=== PATIENT | male | born 1960 | race Caucasian/White ===

== ENCOUNTER → 2016-09-01 | Day surgery (SDC) | payer BC ==
[~2016-09-01] MED LIST: ALEVE220 M1 PO; DOCU SOFT100 M1 PO; LIPITOR40 MG PO; MYRBETRIQ25 MG PO
--- NOTE | ~2016-09-01 | OR ---
Unit #: [id number] #: [id number] Patient: ANTONIO MCMILLAN [id number] [address] [place], [place] [address] [id number] MR#: [id number] NAME: ANTONIO MCMILLAN ROOM: Date of Procedure: 09/01/2016 Admission Date: 09/01/2016 Surgeon: Antonio Gay Jr., M.D. : 1960 Attending Physician: Antonio Gay Jr., M.D. Primary Care Physician: Nicholas Lazo D.O. OPERATIVE REPORT INDICATIONS FOR PROCEDURE The patient is a 55-year-old white male, who had a colonoscopy approximately 2 years ago and was found to have a high-grade dysplastic polyp of the rectosigmoid area. This was snared and removed and was felt he needed a followup colonoscopy to rule out additional polyps and/or occult malignancy. He is brought in this time for colonoscopy at his request. He has had his prep at home. PREOPERATIVE DIAGNOSIS Past history of highly dysplastic colon polyp. POSTOPERATIVE DIAGNOSIS Diverticulosis of the colon, but no evidence of any additional polyps. ANESTHESIA MAC anesthesia. PROCEDURE PERFORMED Flexible colonoscopy to the cecum. DESCRIPTION OF PROCEDURE The patient was positioned in Kay position with left side down. After being given MAC anesthesia, digital rectal examination was performed, which revealed no palpable mass or tenderness. No blood or stool in the rectal ampulla. The prostate was normal by palpation. The Olympus colonoscope was advanced through the anal canal up the rectum and retroflexed down to the area of the anorectal region. There was no evidence of any fissures. No significant internal hemorrhoids. No evidence of any polyps. The scope was then straightened and advanced up in the rectosigmoid, and again there was no evidence of any polyps. There was a scar from his previous polypectomy noted, which appeared clean. The scope was then advanced up in the rectosigmoid, sigmoid and descending colon areas, where there were some diverticula present without evidence of diverticulitis. The scope was then advanced around the splenic flexure and the transverse colon, around hepatic flexure and ascending colon, down in the area of the cecum. The light from the tip of the scope could be seen transilluminating through right lower quadrant abdominal wall area. Multiple attempts advancing the scope up the distal ileum were unsuccessful. The scope was slowly removed. There were no tumors, polyps, cancer, or AVMs. No evidence of any colitis or acute diverticulitis. The caliber of the colon appeared normal throughout. No evidence of any obstruction or narrowing. The scope was removed. The Unit #: [id number] #: [id number] Patient: ANTONIO MCMILLAN patient tolerated the procedure well and discharged in satisfactory condition. Dictated by... Antonio Gay Jr., M.D. JMB/venessa TD: 09/01/2016 15:09 JOB #: [id number] CC: . OPERATIVE REPORT Page 1 of 1 X Antonio Gay MD X PROCEDURE OPERATIVE NOTE
== END | disposition home or self-care (01) ==
LOC: COPS 05:23
DX: Z12.11 Encounter for screening for malignant neoplasm of colon (principal); K57.30 Diverticulosis of large intestine without perforation or abscess without bleeding; E78.00 Pure hypercholesterolemia, unspecified; E78.5 Hyperlipidemia, unspecified; Z86.010 Personal history of colon polyps; Z80.0 Family history of malignant neoplasm of digestive organs; Z79.899 Other long term (current) drug therapy; Z98.890 Other specified postprocedural states
CPT/HCPCS: J2250